=== PATIENT | male | born 2000 | race Caucasian/White ===

== ENCOUNTER 2023-01-04 12:09 | Emergency (ER) | payer MEDICAID ==
[~2023-01-04] VITALS: Ht 167.6 cm; Wt 54.0 kg
[2023-01-04 12:15] VITALS: BP 121/66
[2023-01-04] MEDS ORDERED: CEPH250T PO (12:59)
== END 2023-01-04 13:44 | disposition home or self-care (01) ==
LOC: ER 12:11
DX: L03.113 Cellulitis of right upper limb (principal); Z79.899 Other long term (current) drug therapy; L81.8 Other specified disorders of pigmentation
CPT/HCPCS: 99283